=== PATIENT | female | born 1965 | race Caucasian/White ===

== ENCOUNTER 2017-01-26 18:02 | Emergency (ER) | payer OTHER ==
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
[~2017-01-26 18:02] MED LIST: ADVIL200 M2 PO; ALBUTEROL17 GM INH; HCTZ PO; KEFLEX500 M1 PO; NAPROSYN500 MG PO; SIMVASTATIN40 MG PO; SINGULAIR PO; VICOPROFEN 200-1 TAB PO; ZOLOFT100 MG PO; ZYRTEC10 M2 PO
[2017-01-26] MEDS ORDERED: FISH OIL300 MG (18:08)
[2017-01-26] MEDS ORDERED: PRILOSEC (18:08)
[2017-01-26] MEDS ORDERED: METFORMIN (18:08)
== END 2017-01-26 19:42 | disposition home or self-care (01) ==
LOC: SED 18:02
DX: S40.012A Contusion of left shoulder, initial encounter (principal); E11.9 Type 2 diabetes mellitus without complications; I10 Essential (primary) hypertension; V89.2XXA Person injured in unspecified motor-vehicle accident, traffic, initial encounter; Y92.410 Unspecified street and highway as the place of occurrence of the external cause
CPT/HCPCS: 70450; 73010; 99284